=== PATIENT | male | born 1995 | race African-American/Black ===

== ENCOUNTER 2018-04-03 02:09 | Emergency (ER) | payer MEDICAID ==
[~2018-04-03] VITALS: Ht 177.8 cm; Wt 71.2 kg
[2018-04-03 02:30] VITALS: BP 117/72
--- NOTE | 2018-04-03 02:33 | NUR ---
PT.AMBULATED TO [facility]
--- NOTE | 2018-04-03 03:56 | NUR ---
PATIENT PRESENTS TO ED WITH NAUSEA, VOMITING, AND SOB X1 DAY. SKIN IS PINK/WARM/DRY; AAOX4 WITH EVEN AND STEADY GAIT; LUNGS CLEAR BL; HR EVEN AND REGULAR; PT DENIES ANY FEVER, CP, SOB, OR COUGH AT THIS TIME; PATIENT STATES PAIN OF 0/10 AT THIS TIME; VSS; PATIENT POSITIONED FOR COMFORT; HOB ELEVATED; BEDRAILS UP X1; BED DOWN. ER MD MADE AWARE OF PT STATUS. CONTINUE TO MONITOR.
--- NOTE | 2018-04-03 03:56 | NUR ---
PT AMBULATED TO ER BED 03
[2018-04-03] MEDS ORDERED: LORazepam 1 MG TAB PO ONE (04:35)
[2018-04-03 06:33] VITALS: BP 117/72
== END 2018-04-03 06:33 | disposition home or self-care (01) ==
LOC: MED 02:09
DX: F41.9 Anxiety disorder, unspecified (principal)
CPT/HCPCS: 71046; 93005; 99284